=== PATIENT | male | born 1985 | race Caucasian/White ===

== ENCOUNTER 2019-12-12 03:06 | Emergency (ER) | payer SELFPAY ==
[~2019-12-12] VITALS: Ht 177.8 cm; Wt 90.7 kg
[2019-12-12 03:10] VITALS: BP_SYST 136
--- NOTE | 2019-12-12 03:18 | NUR ---
Placed in room 6 . Placed on environmental monitoring specialist, blood pressure machine and pulse oximeter. To gown for exam. Side rails up. Report given to [facility].
--- NOTE | 2019-12-12 03:30 | NUR ---
Patient complains of cough that has been going on intermittently for baout a year or so but has gotten worse the last few days. Pt denies any N/V fever or diarrhea. Per patient, has phlegm when coughing up. NO other injuries/complaints per patient or noted.
--- NOTE | 2019-12-12 03:38 | NUR ---
ER Dr. Edgar at bedside examining patient.
[2019-12-12] MEDS ORDERED: LEVALBUTEROL HCL 0.63 MG/3 ML VIAL.NEB INH ONE (03:45)
--- NOTE | 2019-12-12 03:59 | NUR ---
RT at bedside administering breathing treatment. Pt tolerated well.
[2019-12-12] MEDS ORDERED: IPRATROPIUM/ALBUTEROL SULFATE 3 ML AMPUL.NEB (DUONEB) ONE (04:17)
[2019-12-12] MEDS ORDERED: ALBUTEROL SULFATE 0.083% 2.5 MG/3 ML VIAL.NEB INH ONE (04:17)
--- NOTE | 2019-12-12 04:33 | NUR ---
ER Dr. Edgar at bedside re-examining patient.
[2019-12-12] MEDS ORDERED: AZITHROMYCIN 250 MG TABLET PO ONE (04:45)
--- NOTE | 2019-12-12 04:49 | NUR ---
Patient given written and verbal discharge instructions and verbalizes understanding. ER MD discussed with patient the results and treatment provided. Patient in stable condition. ID arm band removed. Rx of Azithromycin given. Patient educated on pain management and to follow up with PMD. Pain Scale 0/10. Opportunity for questions provided and answered. Medication side effect fact sheet provided.
[2019-12-12 04:51] VITALS: BP_SYST 139
== END 2019-12-12 04:51 | disposition home or self-care (01) ==
LOC: SED 03:06
DX: J98.01 Acute bronchospasm (principal); R06.02 Shortness of breath; F17.200 Nicotine dependence, unspecified, uncomplicated; Z88.0 Allergy status to penicillin
CPT/HCPCS: 94640; 99283; J7614; Q0144; J7613; J7620

== ENCOUNTER 2020-03-09 16:48 | Emergency (ER) | payer SELFPAY ==
[~2020-03-09] VITALS: Ht 177.8 cm; Wt 95.3 kg
[2020-03-09 16:57] VITALS: BP_SYST 138
[2020-03-09] MEDS ORDERED: NACL 0.9% 1,000 ML IV ONE (17:15)
--- NOTE | 2020-03-09 17:15 | NUR ---
DR MEIER IN TO ASSESS.
--- NOTE | 2020-03-09 17:25 | NUR ---
VIDYA TO ASSUME CARE, PT HERE FROM HOME FOR SOB / ELEVATED HR AND CP STATED AT HOME CP 155, UPON ARRIVAL. CALM, ALERT,RESP,UNLABORED, SKIN WARM AND DRY. STEADY GAIT, DENIES DYSPNEA, ST ON MONITOR
[2020-03-09 17:42] LABS: BASOPHILS % (AUTO) 0.5 % (0.0-2.0); EOSINOPHILS # (AUTO) 0.1 K/uL (0.0-0.4); EOSINOPHILS % (AUTO) 1.7 % (0.0-4.0); HEMATOCRIT 44.3 % (36-54); HEMOGLOBIN 15.3 g/dL (14.0-18.0); LYMPHOCYTES # (AUTO) 2.2 K/uL (1.0-5.5); LYMPHOCYTES % (AUTO) 35.7 % (20.5-51.5); MEAN CORPUSCULAR HEMOGLOBIN 31 pg (27-31); MEAN CORPUSCULAR HGB CONC 34 % (32-36); MEAN CORPUSCULAR VOLUME 90 fL (79.0-98.0); MONOCYTES # (AUTO) 0.4 K/uL (0.0-1.0); MONOCYTES % (AUTO) 6.1 % (1.7-9.3); NEUTROPHILS # (AUTO) 3.4 K/uL (1.8-7.7); PLATELET COUNT (AUTO) 228 K/uL (130-430); RED BLOOD CELL COUNT(AUTO) 4.92 MIL/uL (4.2-6.2); RED CELL DISTRIBUTION WIDTH 12.7 % (9.0-15.0); WHITE BLOOD COUNT (AUTO) 6.1 K/uL (4.8-10.8)
--- NOTE | 2020-03-09 17:47 | NUR ---
EKG, CXR AND LABS COMPLETED. AWAITNG RESULTS
[2020-03-09 18:16] LABS: CALCIUM 8.5 mg/dL (8.4-11.0); CREATININE 1.06 mg/dL (0.55-1.30); POTASSIUM 3.4 mmol/L (3.5-5.1)
[2020-03-09 18:32] LABS: ALBUMIN 3.8 g/dL (3.4-4.8); FREE T4 (FREE THYROXINE) 0.9 ng/dL (0.6-1.6); THYROID STIMULATING HORMONE 1.6 uIu/mL (0.34-4.82); TOTAL BILIRUBIN 0.3 mg/dL (0.0-1.0)
--- NOTE | 2020-03-09 18:39 | NUR ---
NO CHANGE IN MENTATION, RESP UNLABORED, NSR ON MONITOR. DENIES CP/SOB
[2020-03-09 20:00] VITALS: BP_SYST 128
--- NOTE | 2020-03-09 20:04 | NUR ---
Patient given written and verbal discharge instructions and verbalizes understanding. ER MD discussed with patient the results and treatment provided. Patient in stable condition. ID arm band removed. IV catheter removed intact and dressing applied, no active bleeding. Patient educated on pain management and to follow up with PMD. Pain Scale 0/10 Opportunity for questions provided and answered. Medication side effect fact sheet provided.
== END 2020-03-09 20:00 | disposition home or self-care (01) ==
LOC: SED 16:48
DX: R00.2 Palpitations (principal); R06.02 Shortness of breath; Z88.0 Allergy status to penicillin
CPT/HCPCS: 36415; 71045; 80053; 84439; 84443; 84479; 85025; 93005; 99285; J7030